=== PATIENT | male | born 1990 | race Asian ===

== ENCOUNTER 2018-09-07 09:36 | Outpatient (CLI) | payer MEDICAID ==
[2018-09-07] VITALS (18 sets, daily range): BP systolic 131–164; BP diastolic 77–103
== END 2018-09-07 23:59 | disposition home or self-care (01) ==
LOC: CARD DIAG 09:36
PROVIDERS: ATTEND Physician Assistant
DX: R55 Syncope and collapse (principal); Z87.891 Personal history of nicotine dependence
CPT/HCPCS: 93660

== ENCOUNTER 2018-09-24 09:17 | Outpatient (CLI) | payer MEDICAID | END 2018-09-24 23:59 | disposition home or self-care (01) | LOC: RAD 09:17 | DX: R40.20 Unspecified coma (principal); F17.200 Nicotine dependence, unspecified, uncomplicated | CPT/HCPCS: 95819 ==